=== PATIENT | female | born 2000 | race Caucasian/White ===

== ENCOUNTER 2021-01-24 09:18 | Emergency (ER) | payer MEDICAID ==
[~2021-01-24] VITALS: Ht 152.4 cm; Wt 63.5 kg
[2021-01-24 09:20] VITALS: BP 156/85
--- NOTE | 2021-01-24 09:27 | NUR ---
DR FRAIRE AT BEDSIDE
--- NOTE | 2021-01-24 09:27 | NUR ---
PT AMBULATED TO BED 08.
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
[2021-01-24] MEDS ORDERED: ACETAMINOPHEN EXTRA STRENGTH 500 MG TAB PO ONE (09:35)
[2021-01-24] MEDS ORDERED: IBUPROFEN 600 MG TAB PO ONE (09:35)
--- NOTE | 2021-01-24 09:42 | NUR ---
PT TAKEN TO RAD IN W/C
--- NOTE | 2021-01-24 09:57 | NUR ---
PT BACK FROM RAD.
[2021-01-24 10:41] VITALS: BP 144/81
--- NOTE | 2021-01-24 10:41 | NUR ---
Patient discharged with v/s stable. Written and verbal after care instructions given and explained. Patient verbalized understanding. Ambulatory with steady gait. All questions addressed prior to discharge. Advised to follow up with PMD.
== END 2021-01-24 10:41 | disposition home or self-care (01) ==
LOC: MED 09:18
DX: S29.001D Unspecified injury of muscle and tendon of front wall of thorax, subsequent encounter (principal); R07.81 Pleurodynia; F32.9 Major depressive disorder, single episode, unspecified; W22.8XXD Striking against or struck by other objects, subsequent encounter
CPT/HCPCS: 71046; 99283

== ENCOUNTER 2021-03-09 18:49 | Emergency (ER) | payer MEDICAID ==
[~2021-03-09] VITALS: Ht 154.9 cm; Wt 66.7 kg
--- NOTE | 2021-03-09 19:12 | NUR ---
PATIENT AMBUALTORY TO BED 6.
--- NOTE | 2021-03-09 19:22 | NUR ---
20 Y/O FEMALE CAME TO THE ED C/O BILATERAL FOOT PAIN. PT STATES BILATERAL FOOT PAIN OF 8/10 X 1 WEEK THAT WORSEN TODAY. PT STATES THAT SHE "WENT TO GET HER NAILS DONE IN A SALON, AND DEVELOPED A SKIN CONDITION". PT STATED THAT IT ALSO FEELS PAINFUL AND ITCHY. PMH: KARLA BLAIR
[2021-03-09] MEDS ORDERED: CLOT1CRE82 TP (19:45)
[2021-03-09] MEDS ORDERED: HYD1C TP (19:45)
--- NOTE | 2021-03-09 19:59 | NUR ---
Pt d/c with VSS. d/c education given. d/c with rx of clomitrazole and hydrocortisone cream. opportunity to ask questions given and answered.
== END 2021-03-09 19:59 | disposition home or self-care (01) ==
LOC: MED 18:49
DX: B35.3 Tinea pedis (principal); Z79.899 Other long term (current) drug therapy
CPT/HCPCS: 99282

== ENCOUNTER 2021-09-13 10:08 | Emergency (ER) | payer MEDICAID, SELFPAY ==
[~2021-09-13] VITALS: Ht 152.4 cm; Wt 63.5 kg
[~2021-09-13 10:08] MED LIST: CLOT1CRE82 TP; HYD1C TP
[2021-09-13 10:14] VITALS: BP 144/85
[2021-09-13] MEDS ORDERED: ACETAMINOPHEN EXTRA STRENGTH 500 MG TAB PO ONE (10:30)
--- NOTE | 2021-09-13 10:34 | NUR ---
BIB SELF C/O FEVER, SORE THROAT, CAGLE, DIARRHEA X 3 DAYS AND C/O WHITE SMELLY VAGINAL DISCHARGE X 1 WEEK. ORAL TEMP 100.9 , P 106 AT THIS TIME. COVID TESTED NEGATIVE 09/06/21. PMH: DENIES
--- NOTE | 2021-09-13 10:39 | NUR ---
Patient being evaluated by BHARGAVO at bedside.
[2021-09-13] MEDS ORDERED: DEXAMETHASONE 4 MG/ML VIAL PO ONE (10:45)
[2021-09-13 11:18] LABS: APPEARANCE,URINE CLEAR (CLEAR); BILIRUBIN,URINE 1+ (NEGATIVE); BLOOD, URINE 2+ (NEGATIVE); COLOR,URINE YELLOW (YELLOW); LEUKOCYTE ESTERASE ,URINE NEGATIVE (NEGATIVE); NITRITE, URINE NEGATIVE (NEGATIVE); UGLUCOSE NEGATIVE (NEGATIVE)
[2021-09-13 11:24] LABS: WBC,URINE 0-5 /HPF (0-5)
[2021-09-13] MEDS ORDERED: AMOX875T3 PO (11:38)
[2021-09-13 11:51] VITALS: BP 135/72
--- NOTE | 2021-09-13 11:52 | NUR ---
Patient discharged with v/s stable. Written and verbal after care instructions given STREP AND SORE THROAT and explained. Patient alert, oriented and verbalized understanding of instructions. Ambulatory with steady gait. All questions addressed prior to discharge. ID band removed. Patient advised to follow up with PMD. Rx of AMOXICILLIN given. Patient educated on indication of medication including possible reaction and side effects. Opportunity to ask questions provided and answered.
== END 2021-09-13 11:51 | disposition home or self-care (01) ==
LOC: MED 10:08
DX: J02.9 Acute pharyngitis, unspecified (principal); R00.0 Tachycardia, unspecified; Z79.2 Long term (current) use of antibiotics; Z79.899 Other long term (current) drug therapy
CPT/HCPCS: 81001; 81025; 87081; 99283; J1100